=== PATIENT | male | born 1995 | race Caucasian/White ===

== ENCOUNTER 2021-04-02 11:13 | Emergency (ER) | payer OTHER ==
[~2021-04-02] VITALS: Ht 175.3 cm; Wt 72.6 kg
[2021-04-02 11:15] VITALS: BP 135/85
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
== END 2021-04-02 11:39 | disposition home or self-care (01) ==
LOC: ER 11:23